=== PATIENT | female | born 1975 | race Two or more races ===

== ENCOUNTER 2017-05-20 10:00 | Outpatient (CLI) | payer OTHER | END 2017-05-20 10:10 | disposition home or self-care (01) | LOC: NUCLEAR 10:00 | DX: I73.9 Peripheral vascular disease, unspecified (principal) ==

== ENCOUNTER 2017-05-24 09:44 | Outpatient (CLI) | payer OTHER | END 2017-05-24 10:00 | disposition home or self-care (01) | LOC: LAB 09:44 | DX: G61.89 Other inflammatory polyneuropathies (principal); L93.0 Discoid lupus erythematosus; G62.9 Polyneuropathy, unspecified; B20 Human immunodeficiency virus [HIV] disease; A53.9 Syphilis, unspecified; E53.8 Deficiency of other specified B group vitamins ==

== ENCOUNTER 2017-06-03 13:32 | Outpatient (CLI) | payer OTHER | END 2017-06-03 15:10 | disposition home or self-care (01) | LOC: MAMO-SONO 13:32 | DX: D49.3 Neoplasm of unspecified behavior of breast (principal); N60.11 Diffuse cystic mastopathy of right breast; N60.12 Diffuse cystic mastopathy of left breast ==

== ENCOUNTER 2018-03-18 07:04 | Emergency (ER) | payer OTHER ==
[~2018-03-18] VITALS: Ht 165.1 cm; Wt 74.8 kg
== END 2018-03-18 11:14 | disposition home or self-care (01) ==
LOC: ER 07:04
DX: M62.838 Other muscle spasm (principal); M25.562 Pain in left knee; M25.561 Pain in right knee; M54.2 Cervicalgia; M54.89 Other dorsalgia; M79.18 Myalgia, other site

== ENCOUNTER 2018-08-28 12:24 | Emergency (ER) | payer OTHER ==
[~2018-08-28] VITALS: Ht 165.1 cm; Wt 70.3 kg
== END 2018-08-28 14:07 | disposition home or self-care (01) ==
LOC: ER 12:24
DX: M54.5 Low back pain (principal)

== ENCOUNTER 2019-09-15 15:08 | Emergency (ER) | payer OTHER ==
[~2019-09-15] VITALS: Ht 165.1 cm; Wt 72.6 kg
[2019-09-15] MEDS ORDERED: KEFLEX500 MG (15:20)
== END 2019-09-15 23:15 | disposition home or self-care (01) ==
LOC: ER 15:08
DX: L03.011 Cellulitis of right finger (principal); I89.1 Lymphangitis

== ENCOUNTER 2019-09-22 13:09 | Outpatient (CLI) | payer OTHER ==
[~2019-09-22 13:09] MED LIST: KEFLEX500 MG
== END 2019-09-22 13:20 | disposition home or self-care (01) ==
LOC: LAB 13:09
PROVIDERS: ATTEND General Practice
DX: D64.89 Other specified anemias (principal); A49.8 Other bacterial infections of unspecified site; Z79.01 Long term (current) use of anticoagulants; D75.89 Other specified diseases of blood and blood-forming organs; N39.0 Urinary tract infection, site not specified; B00.89 Other herpesviral infection

== ENCOUNTER 2021-11-27 10:13 | Emergency (ER) | payer OTHER ==
[~2021-11-27] VITALS: Ht 165.1 cm; Wt 70.3 kg
== END 2021-11-27 14:42 | disposition home or self-care (01) ==
LOC: ER 10:13
DX: U07.1 COVID-19 (principal)

== ENCOUNTER 2024-01-24 13:35 | Outpatient (CLI) | payer OTHER | END 2024-01-24 13:42 | disposition home or self-care (01) | LOC: LAB 13:35 | PROVIDERS: ATTEND Specialist | DX: L02.91 Cutaneous abscess, unspecified (principal) ==

== ENCOUNTER 2024-01-29 18:46 | Emergency (ER) | payer OTHER ==
[~2024-01-29] VITALS: Ht 165.1 cm; Wt 63.5 kg
[2024-01-29] MEDS ORDERED: 0.9 % SODIUM CHLORIDE 1,000 ML IV STA (19:35)
[2024-01-29] MEDS ORDERED: PIPERACILLIN/TAZOBACTAM SODIUM 3.375 GM VIAL IV ONE (19:45)
[2024-01-29] MEDS ORDERED: CEFTRIAXONE SODIUM 1,000 MG VIAL IV ONE (19:45)
[2024-01-29 20:30] LABS: HEMATOCRIT 38.1 % (36.0-45.00); HEMOGLOBIN 13.2 g/dL (12.0-15.00); MEAN CELL VOLUME 93.3 fL (80.00-100.00); MEAN CORPUSCULAR HEMOGLOBIN 32.3 pg (27.00-32.0); MEAN CORPUSCULAR HGB CONC 34.6 g/dl (32.0-36.0); PLATELET COUNT 233 K/uL (150-450); RED BLOOD COUNT 4.09 M/uL (4.00-6.00); RED CELL DISTRIBUTION WIDTH 13.3 % (11.5-14.5)
[2024-01-29 20:38] LABS: URINE APPEARANCE Clear; URINE BILIRRUBIN Negative (NEGATIVE); URINE BLOOD Negative; URINE COLOR Yellow; URINE GLUCOSE Negative (NEGATIVE); URINE KETONE Negative (NEGATIVE); URINE LEUKOCYTE Negative; URINE NITRATE Negative; URINE PROTEIN Negative (NEGATIVE); URINE UROBILINOGEN 0.2 E.U./dl
[2024-01-29 20:39] LABS: URINE BACTERIA 142.2 uL (0.0-1933); URINE EPITHELIAL CELLS 4.7 uL (0.0-38.8); URINE WBC 4.4 uL (0.0-23.2)
[2024-01-29 20:40] LABS: URINE RBC 1.6 uL (0.0-20.8)
[2024-01-29 20:49] LABS: CALCIUM 8.9 mg/dL (8.5-10.1); CREATININE SERUM 0.82 mg/dL (0.55-1.02); GFR 74.09; POTASSIUM 3.91 mEq/L (3.5-5.1)
[2024-01-30] MEDS ORDERED: ZOLPIDEM TARTRATE 10 MG TABLET PO ONE (02:45)
[2024-01-30] MEDS ORDERED: KETOROLAC TROMETHAMINE 30 MG VIAL IV STA (08:12)
== END 2024-01-30 08:54 | disposition home or self-care (01) ==
LOC: ER 18:48
PROVIDERS: Emergency Medicine
DX: T81.49XA Infection following a procedure, other surgical site, initial encounter (principal); X58.XXXA Exposure to other specified factors, initial encounter; Y92.89 Other specified places as the place of occurrence of the external cause

== ENCOUNTER 2025-02-25 18:09 | Emergency (ER) | payer OTHER ==
[~2025-02-25] VITALS: Ht 165.1 cm; Wt 65.8 kg
[2025-02-25] MEDS ORDERED: AMBIEN10 MG PO (19:10)
[2025-02-25] MEDS ORDERED: ORPHENADRINE CITRATE 30 MG/ML AMPUL IM ONE (20:00)
[2025-02-25] MEDS ORDERED: DEXAMETHASONE SODIUM PHOSPHATE 4 MG/ML VIAL IM ONE (20:00)
[2025-02-25] MEDS ORDERED: ACETAMINOPHEN 500 MG GEL..CAP PO ONE ×2 (20:00→20:10)
[2025-02-25] MEDS ORDERED: 0.9 % SODIUM CHLORIDE 1,000 ML IV SCH (20:00)
[2025-02-25] MEDS ORDERED: DEXAMETHASONE SODIUM PHOSPHATE 4 MG/ML VIAL ONE (20:10)
[2025-02-25] MEDS ORDERED: ORPHENADRINE CITRATE 30 MG/ML AMPUL ONE (20:10)
[2025-02-25 21:35] LABS: BASO % 0.5 % (0.1-1.2); EOS # 0.11 (0.04-0.54); EOS % 1.7 % (0.7-7.0); LYMPH # 1.85 (1.18-3.74); LYMPH % 28.6 % (19.3-53.1); MEAN PLATELET VOLUME 10.50 fl (9.4-12.4); MONO # 0.41 (0.24-0.82); MONO % 6.3 % (4.7-12.5); NEUT # 4.05 (1.56-6.13); NEUT % 62.7 % (34.0-71.1); RED CELL DISTRIBUTION WIDTH 11.9 % (11.6-14.4)
[2025-02-25 21:59] LABS: URINE APPEARANCE Clear; URINE BILIRRUBIN Negative (NEGATIVE); URINE BLOOD Small; URINE COLOR Yellow; URINE GLUCOSE Negative (NEGATIVE); URINE KETONE Negative (NEGATIVE); URINE LEUKOCYTE Small; URINE NITRATE Negative; URINE PROTEIN Trace (NEGATIVE); URINE UROBILINOGEN 1.0 E.U./dl
[2025-02-25 22:02] LABS: URINE BACTERIA 28.5 uL (0.0-1933); URINE EPITHELIAL CELLS 12.1 uL (0.0-38.8); URINE RBC 107.6 uL (0.0-20.8); URINE WBC 44.3 uL (0.0-23.2)
[2025-02-25 22:17] LABS: URINE CAST 0.70 uL (0.0-1.40)
[2025-02-25 22:35] LABS: ALT/SGPT 23.0 U/L (12-78); AST/SGOT 13.0 U/L (15-37); BILIRUBIN TOTAL 0.46 mg/dL (0.3-1.2); BUN CREA RATIO 22.0 (7.0-25.0); CREATININE SERUM 0.68 mg/dL (0.55-1.02); GFR 91.59; GLOBULINA 3.1 G/DL (2.4-3.5); GLUCOSE FASTING 85.0 mg/dL (65-100); OSMOLALITY SERUM 287.0 MOSM/KG (275-295)
[2025-02-26] MEDS ORDERED: PEPCID AC20 MG PO (00:55)
[2025-02-26] MEDS ORDERED: CIPRO500 MG PO (00:55)
[2025-02-26] MEDS ORDERED: URETRON D-S TAB1 TAB PO (00:55)
== END 2025-02-26 04:22 | disposition home or self-care (01) ==
LOC: ER 18:10
PROVIDERS: General Practice
DX: R30.0 Dysuria (principal); N93.9 Abnormal uterine and vaginal bleeding, unspecified; R10.9 Unspecified abdominal pain